=== PATIENT | female | born 1985 | race Caucasian/White ===

== ENCOUNTER 2019-08-27 09:20 | Emergency (ER) | payer BC ==
[~2019-08-27] VITALS: Ht 167.6 cm; Wt 111.4 kg
[2019-08-27 09:25] VITALS: Ht 167.6 cm; Wt 111.4 kg
[2019-08-27] MEDS ORDERED: LEXAPRO5 MG PO (09:27)
[2019-08-27] MEDS ORDERED: BUTALB-APAP-CA1 EACH PO (09:27)
[2019-08-27] MEDS ORDERED: PROPRANOLOL HCL20 MG PO (09:27)
[2019-08-27] MEDS ORDERED: ZOFRAN8 MG PO (09:28)
[2019-08-27] MEDS ORDERED: ZYRTEC10 MG PO (09:28)
[2019-08-27] MEDS ORDERED: VALTREX1000 MG PO (09:29)
[2019-08-27 09:49] LABS: BASOPHILS 0.3 % (0-2); EOSINOPHILS 0.8 % (0-7); HEMATOCRIT 44.6 % (36.0-48.0); HEMOGLOBIN 15.3 g/dL (12-16); IMMATURE GRANULOCYTES 0.3 % (0-5); LYMPHOCYTES 28.3 % (15-50); MCH 31.5 pg (26.0-34.0); MCHC 34.3 g/dL (31.0-37.0); MEAN PLATELET VOLUME 9.8 fL (7.4-10.4); MONOCYTES 8.7 % (2-11); NEUTROPHILS 61.6 % (40-80); RBC 4.85 10x6/uL (4.00-5.40); WBC 6.5 10x3/uL (4.8-10.8)
[2019-08-27 09:51] LABS: BILIRUBIN NEGATIVE (NEGATIVE); GLUCOSE NEGATIVE (NEGATIVE); KETONE NEGATIVE (NEGATIVE); NITRITE NEGATIVE (NEGATIVE); PLATELET COUNT 234 10x3/uL (130-400); SPECIFIC GRAVITY 1.005 (1.005-1.020); UROBILINOGEN NORMAL (NORMAL)
[2019-08-27 10:08] LABS: ANION GAP 9.5 mmol/L (8-16); CALCIUM 9.2 mg/dL (8.5-10.1); POTASSIUM - SERUM 4.5 mmol/L (3.5-5.1)
[2019-08-27 10:08] LABS: HCG SERUM NEGATIVE (NEGATIVE)
[2019-08-27 10:14] LABS: ALBUMIN 4.2 g/dL (3.4-5.0); BILIRUBIN - TOTAL 1.02 mg/dL (0.2-1.3); PROTEIN - SERUM 8.3 g/dL (6.4-8.2)
[2019-08-27 11:15] VITALS: BP 112/82
== END 2019-08-27 11:33 | disposition home or self-care (01) ==
LOC: D.ER 09:20
PROVIDERS: Family Medicine
DX: R10.9 Unspecified abdominal pain (principal); M54.5 Low back pain; R30.0 Dysuria

== ENCOUNTER 2019-10-12 07:20 | Day surgery (SDC) | payer BC ==
[~2019-10-12] VITALS: Ht 167.6 cm; Wt 113.6 kg
[~2019-10-12 07:20] MED LIST: BUTALB-APAP-CA1 EACH PO; LEXAPRO5 MG PO; PROPRANOLOL HCL20 MG PO; VALTREX1000 MG PO; ZOFRAN8 MG PO; ZYRTEC10 MG PO
[2019-10-12 07:38] LABS: BASOPHILS 0.6 % (0-2); EOSINOPHILS 0.8 % (0-7); HEMATOCRIT 38.8 % (36.0-48.0); HEMOGLOBIN 13.5 g/dL (12-16); IMMATURE GRANULOCYTES 0.2 % (0-5); MCH 31.6 pg (26.0-34.0); MCHC 34.8 g/dL (31.0-37.0); MCV 90.9 fL (80.0-100.0); MEAN PLATELET VOLUME 9.8 fL (7.4-10.4); MONOCYTES 9.9 % (2-11); NEUTROPHILS 61.5 % (40-80); RBC 4.27 10x6/uL (4.00-5.40); RDW 13.3 % (11.5-14.5)
[2019-10-12 07:43] LABS: PLATELET COUNT 175 10x3/uL (130-400)
[2019-10-12 07:52] LABS: CALC OSMOLALITY 279 mosm/kg (275-300); CALCIUM 8.6 mg/dL (8.5-10.1); CARBON DIOXIDE 26.8 mmol/L (21.0-32.0); CHLORIDE - SERUM 103 mmol/L (98-107); CREATININE - SERUM 0.8 mg/dL (0.6-1.3); GLUCOSE 94 mg/dL (74-106); POTASSIUM - SERUM 4.1 mmol/L (3.5-5.1); SODIUM 140 mmol/L (136-145); UREA NITROGEN 14 mg/dL (7-18); eGFR NON AFRICAN AMERICAN 87 mL/min (90-120)
[2019-10-12 07:58] LABS: APTT 32.7 SECONDS (22.8-39.4); INR 0.86 (0.85-1.17); PROTIME 11.8 SECONDS (11.6-15.0)
[2019-10-12] MEDS ORDERED: PEPCID AC20 MG PO (08:14)
[2019-10-12] MEDS ORDERED: BAYER CHEWABLE81 MG PO (08:14)
[2019-10-12 08:20] VITALS: BP 103/76; Ht 167.6 cm; Wt 113.6 kg
[2019-10-12 08:22] LABS: HCG SERUM NEGATIVE (NEGATIVE)
--- NOTE | 2019-10-12 14:45 | NUR ---
RIGHT AC PIV DC'D WITH TIP INTACT. PATIENT DRESSING IN PERSONAL CLOTHING. DISCHARGE INSTRUCTIONS REVIEWED WITH PATIENT AND MOTHER. DISCHARGED HOME VIA WHEELCHAIR TO PRIVATE VEHICLE WITH MOTHER
== END 2019-10-12 14:45 | disposition home or self-care (01) ==
LOC: D.SP 07:20 → D.CT 10:00 → EDSTATUS 10:00 → D.SP 14:45
PROVIDERS: Radiology Diagnostic Radiology; ATTEND Legal Medicine
DX: D47.09 Other mast cell neoplasms of uncertain behavior (principal); F41.9 Anxiety disorder, unspecified; D84.1 Defects in the complement system; R42 Dizziness and giddiness; B00.89 Other herpesviral infection; R53.83 Other fatigue; G43.109 Migraine with aura, not intractable, without status migrainosus; F44.5 Conversion disorder with seizures or convulsions; R30.0 Dysuria; L65.9 Nonscarring hair loss, unspecified; R11.2 Nausea with vomiting, unspecified; F43.10 Post-traumatic stress disorder, unspecified; E55.9 Vitamin D deficiency, unspecified

== ENCOUNTER 2020-05-14 15:54 | Emergency (ER) | payer BC ==
[~2020-05-14] VITALS: Ht 167.6 cm; Wt 117.3 kg
[~2020-05-14 15:54] MED LIST changes: +BAYER CHEWABLE81 MG PO; +PEPCID AC20 MG PO
[2020-05-14 15:59] VITALS: Ht 167.6 cm; Wt 117.3 kg
[2020-05-14 16:21] LABS: BASOPHILS 0.3 % (0-2); EOSINOPHILS 1.4 % (0-7); HEMATOCRIT 41.1 % (36.0-48.0); HEMOGLOBIN 13.8 g/dL (12-16); IMMATURE GRANULOCYTES 0.2 % (0-5); LYMPHOCYTE ABS# 1.82 10x3/uL (1.18-3.74); LYMPHOCYTES 28.9 % (15-50); MCHC 33.6 g/dL (31.0-37.0); MCV 89.3 fL (80.0-100.0); MONOCYTES 10.6 % (2-11); NEUTROPHIL ABS# 3.69 10x3/uL (1.56-6.13); NEUTROPHILS 58.6 % (40-80); PLATELET COUNT 205 10x3/uL (130-400); WBC 6.3 10x3/uL (4.8-10.8)
[2020-05-14 16:30] LABS: APTT 28.7 SECONDS (22.8-39.4); INR 0.95 (0.85-1.17); PROTIME 11.7 SECONDS (11.6-15.0)
[2020-05-14 16:33] LABS: CALC OSMOLALITY 274 mosm/kg (275-300); CARBON DIOXIDE 25.9 mmol/L (21.0-32.0); CHLORIDE - SERUM 102 mmol/L (98-107); CREATININE - SERUM 0.8 mg/dL (0.6-1.3); GLUCOSE 108 mg/dL (74-106); POTASSIUM - SERUM 3.6 mmol/L (3.5-5.1); SODIUM 138 mmol/L (136-145); UREA NITROGEN 7 mg/dL (7-18); eGFR NON AFRICAN AMERICAN 87 mL/min (90-120)
[2020-05-14 16:51] LABS: ALBUMIN 3.6 g/dL (3.4-5.0); ALKALINE PHOSPHATASE 44 U/L (30-120); ALT (SGPT) 36 U/L (10-68); BILIRUBIN - TOTAL 0.49 mg/dL (0.2-1.3); CKMB 0.4 U/L (0.0-3.6); CREATINE KINASE 24 UL (21-215); PROTEIN - SERUM 7.4 g/dL (6.4-8.2); TROPONIN-I < 0.017 ng/mL (0.000-0.060)
[2020-05-14 18:04] VITALS: BP 132/81
== END 2020-05-14 18:06 | disposition home or self-care (01) ==
LOC: D.ER 15:54
PROVIDERS: Family Medicine
DX: R00.2 Palpitations (principal); R42 Dizziness and giddiness; R07.9 Chest pain, unspecified; K21.9 Gastro-esophageal reflux disease without esophagitis; R00.0 Tachycardia, unspecified

== ENCOUNTER → 2020-07-22 07:43 | Outpatient (CLI) | payer BC ==
[2020-05-14 15:59] VITALS: BMI 41.7
== END | disposition home or self-care (01) ==
LOC: D.HCCECHO 07:43
PROVIDERS: ATTEND Internal Medicine Cardiovascular Disease
DX: R07.9 Chest pain, unspecified (principal)